=== PATIENT | male | born 1955 | race Caucasian/White ===

== ENCOUNTER 2020-08-19 13:06 | Outpatient (RCR) | payer MEDICARE, OTHER ==
[2020-10-31] MEDS ORDERED: ATEN50TA PO (08:48)
[2020-10-31] MEDS ORDERED: LEVO75TA6 PO (08:48)
[2020-10-31] MEDS ORDERED: DIPH25TA49 PO (08:48)
[2020-11-05] MEDS ORDERED: ACET1TAB43 PO (10:14)
[2020-11-05] MEDS ORDERED: CIPR-226 PO (10:14)
== END 2020-11-17 | disposition home or self-care (01) ==
LOC: ONC 13:06
PROVIDERS: ATTEND Radiology Radiation Oncology
DX: C61 Malignant neoplasm of prostate (principal); I10 Essential (primary) hypertension; E03.9 Hypothyroidism, unspecified
CPT/HCPCS: 76873; G0463; 99205

== ENCOUNTER 2020-10-30 05:39 | Outpatient (CLI) | payer MEDICARE, OTHER ==
[~2020-10-30] VITALS: Ht 190.5 cm; Wt 101.7 kg
[2020-10-31] MEDS ORDERED: LEVO75TA6 PO (08:48)
[2020-10-31] MEDS ORDERED: ATEN50TA PO (08:48)
[2020-10-31] MEDS ORDERED: DIPH25TA49 PO (08:48)
== END 2020-10-31 08:57 | disposition home or self-care (01) ==
LOC: PREOP 05:39 → EDSTATUS 12:30 → PREOP 10-31 08:57
PROVIDERS: ATTEND Radiology Radiation Oncology
DX: Z01.812 Encounter for preprocedural laboratory examination (principal); C61 Malignant neoplasm of prostate

== ENCOUNTER 2020-11-05 09:30 | Day surgery (SDC) | payer MEDICARE, OTHER ==
[2020-11-05] VITALS (10 sets, daily range): BP systolic 110–159; BP diastolic 74–104
[~2020-11-05] VITALS: Ht 190.5 cm; Wt 101.7 kg
[~2020-11-05 09:30] MED LIST: ATEN50TA PO; DIPH25TA49 PO; LEVO75TA6 PO
[2020-11-05] MEDS ORDERED: LACTATED RINGERS 1,000 ML IV PRN (09:45)
--- NOTE | 2020-11-05 10:11 | Progress Note-Pre Operative ---
Pre-Operative Progress Note H&P Reviewed The H&P was reviewed, patient examined and no changes noted. Date Seen by Provider: Nov 05, 2020 Time Seen by Provider: 10:10 Date H&P Reviewed: Nov 05, 2020 Time H&P Reviewed: 10:10 Pre-Operative Diagnosis: Prostate cancer cT1c, PSA 4.74, [place] 7 (3+4) TRENT ESPARZA MD Nov 05, 2020 10:11
[2020-11-05] MEDS ORDERED: CIPR-226 PO (10:14)
[2020-11-05] MEDS ORDERED: ACET1TAB43 PO (10:14)
--- NOTE | 2020-11-05 10:18 | Discharge Inst-Simple/Standard ---
Discharge Inst-Standard Reconcile Patient Problems Problems Reviewed?: Yes Discharge Medications New, Converted or Re-Newed RX: RX Given to Pt/Family Patient Instructions/Follow Up Plan of Care/Instructions/FU: 1)One month post implant scan at [facility] cancer center 12/02/20 at 11:00 a.m. 2)One month follow up with Dr. Prasad 12/05/20 at 9:15 a.m. Activity as Tolerated: Yes Discharge Diet: No Restrictions Other Inst to Patient Please instruct patient on morrissey care and catheter removal. Check with Dr. Prasad for date of removal. TRENT ESPARZA MD Nov 05, 2020 10:18
[2020-11-05] MEDS ORDERED: LIDOCAINE PF 2% 5 ML (XYLOCAINE) VIAL ONE (10:44)
[2020-11-05] MEDS ORDERED: ONDANSETRON 4 MG/2 ML (SDV) Z0FRAN ONE (10:44)
[2020-11-05] MEDS ORDERED: fentaNYL INJ 100 MCG/2 ML AMP ONE (10:44)
[2020-11-05] MEDS ORDERED: proPOfol 200 MG/20 ML (DIPRIVAN) VIAL IV ONE ×2 (10:44→11:32)
[2020-11-05] MEDS ORDERED: MIDAZOLAM 2 MG/2 ML (VERSED) VIAL ONE (10:45)
[2020-11-05] MEDS ORDERED: BACITRACIN OINTMENT 28 GM TUBE ONE (11:03)
[2020-11-05] MEDS ORDERED: SEVOFLURANE (ULTANE) 15 ML INHAL SOLN ONE (11:20)
[2020-11-05] MEDS ORDERED: ROCURONIUM 10 MG/ML 5 ML SYRINGE IV ONE (11:35)
[2020-11-05] MEDS ORDERED: NEOSTIGMINE 3 MG/3 ML VIAL ONE (11:51)
[2020-11-05] MEDS ORDERED: GLYCOPYRROLATE 0.2 MG/ML (ROBINUL) 2 ML VIAL ONE (11:51)
[2020-11-05] MEDS ORDERED: HYDROmorphone 2 MG/ML VIAL (DILAUDID) IV ONE (12:30)
[2020-11-05] MEDS ORDERED: ONDANSETRON 4 MG/2 ML (SDV) Z0FRAN IVP PRN (12:30)
--- NOTE | 2020-11-05 12:44 | Progress Note-Post Operative ---
Post-Operative Progess Note Surgeon (s)/Polls Or Surveys Interviewer (s) Surgeon TRENT ESPARZA MD Polls Or Surveys Interviewer: Jun PAL MD Pre-Operative Diagnosis Prostate cancer cT1c, PSA 4.74, [place] 7 (3+4) Post-Operative Diagnosis Same as preop Procedure & Operative Findings Date of Procedure 11/05/20 Procedure Performed/Findings (1) 100% Cesium 131 permanent prostate seed implant (2) Injection of biodegradable hydrogel prostate-rectal spacer utilizing the SpaceOAR system (3) Cystogram Prostate volume 38.5 cc Anesthesia Type General Estimated Blood Loss Estimated blood loss (mL): Minimal Specimens/Packing Specimens Removed N/A Packing: None TRENT ESPARZA MD Nov 05, 2020 12:44
--- NOTE | 2020-11-05 13:09 | Diagnostic Imaging Report ---
INDICATION: Brachytherapy. Prostate cancer. COMPARISON: None. TOTAL FLUOROSCOPY TIME: 14 seconds. TOTAL NUMBER OF FLUOROSCOPIC IMAGES SAVED: 1. FINDINGS: A single intraoperative image intensifier view of the pelvis was obtained. Contrast is seen within the urinary bladder. Multiple metallic beads are identified projecting over the pubic symphysis. Please note, the interpreting radiologist was not present during the procedure. IMPRESSION: Fluoroscopic guidance provided intraoperatively. Dictated by: Dictated on workstation # [id number]
--- NOTE | 2020-11-05 13:58 | Anesthesia-General Post-Op ---
General Patient Condition Mental Status/LOC: Same as Preop Cardiovascular: Satisfactory Nausea/Vomiting: Absent Respiratory: Satisfactory Pain: Controlled Complications: Absent Post Op Complications Complications None Follow Up Care/Instructions Patient Instructions None needed. Anesthesia/Patient Condition Patient Condition Patient is doing well, no complaints, stable vital signs, no apparent adverse anesthesia problems. No complications reported per nursing. D/C home per [facility] Criteria: Yes SAE LOVING CRNA Nov 05, 2020 13:58
== END 2020-11-05 14:20 | disposition home or self-care (01) ==
LOC: SDC 09:30
PROVIDERS: ATTEND Radiology Radiation Oncology
DX: C61 Malignant neoplasm of prostate (principal); E03.9 Hypothyroidism, unspecified; I10 Essential (primary) hypertension; M19.90 Unspecified osteoarthritis, unspecified site; J30.9 Allergic rhinitis, unspecified; Z96.653 Presence of artificial knee joint, bilateral; Z79.890 Hormone replacement therapy; Z79.899 Other long term (current) drug therapy; Z80.3 Family history of malignant neoplasm of breast
CPT/HCPCS: 55874; 55876; 76000; 76965; 77290; 77318; 77332; 77370; 77470; 77778; 87081; C1715 ×2; C1889; C2643

== ENCOUNTER 2020-12-02 10:59 | Outpatient (RCR) | payer MEDICARE, OTHER ==
[~2020-12-02 10:59] MED LIST changes: +ACET1TAB43 PO; +CIPR-226 PO
== END 2021-03-02 | disposition home or self-care (01) ==
LOC: ONC 10:59
PROVIDERS: ATTEND Radiology Radiation Oncology
DX: C61 Malignant neoplasm of prostate (principal); I10 Essential (primary) hypertension; E03.9 Hypothyroidism, unspecified; Z96.653 Presence of artificial knee joint, bilateral
CPT/HCPCS: 77290; 77295

== ENCOUNTER 2021-04-30 10:27 | Outpatient (RCR) | payer MEDICARE, OTHER | END 2021-07-24 | disposition home or self-care (01) | LOC: ONC 10:27 | PROVIDERS: ATTEND Radiology Radiation Oncology | DX: C61 Malignant neoplasm of prostate (principal); I10 Essential (primary) hypertension; E03.9 Hypothyroidism, unspecified | CPT/HCPCS: 84153; G0463; 99213 ==

== ENCOUNTER → 2022-05-06 | Outpatient (CLI) | payer MEDICARE, OTHER ==
[~2022-05-06] MED LIST changes: +ACET-11 PO; -ACET1TAB43 PO
== END ==
LOC: ONC 09:07
PROVIDERS: ATTEND Radiology Radiation Oncology
DX: C61 Malignant neoplasm of prostate (principal)
CPT/HCPCS: G0103; G0463; 36415; 84153; 99212